=== PATIENT | female | born 1945 | race Two or more races ===

== ENCOUNTER 2025-06-26 12:45 | Emergency (ER) | payer OTHER ==
[~2025-06-26] VITALS: Ht 157.5 cm; Wt 69.9 kg
[2025-06-26] MEDS ORDERED: PLAVIX75 MG PO (13:12)
[2025-06-26] MEDS ORDERED: ATACAND32 MG PO (13:12)
[2025-06-26] MEDS ORDERED: METFORMIN HCL500 M3 PO (13:12)
[2025-06-26] MEDS ORDERED: LIPITOR20 MG PO (13:13)
[2025-06-26] MEDS ORDERED: ZETIA10 MG PO (13:13)
[2025-06-26] MEDS ORDERED: TOPROL XL200 MG PO (13:13)
[2025-06-26] MEDS ORDERED: NITROGLYCERIN 0.4 MG TAB.SUBL SL STA (14:30)
[2025-06-26] MEDS ORDERED: NITROGLYCERIN IN 5 % DEXTROSE 50 MG/250 ML KIT IV STA (14:41)
[2025-06-26] MEDS ORDERED: ASPIRIN 325 MG TABLET PO STA (14:41)
[2025-06-26] MEDS ORDERED: PANTOPRAZOLE SODIUM 40 MG/VIAL VIAL IV PUSH STA (14:42)
[2025-06-26] MEDS ORDERED: SODIUM CHLORIDE 0.45 % 1,000 ML IV STA (14:44)
[2025-06-26 15:13] LABS: BASO % 0.4 % (0.1-1.2); EOS # 0.22 (0.04-0.54); EOS % 2.2 % (0.7-7.0); LYMPH # 3.43 (1.18-3.74); LYMPH % 34.6 % (19.3-53.1); MEAN PLATELET VOLUME 12.10 fl (9.4-12.4); MONO # 0.62 (0.24-0.82); MONO % 6.3 % (4.7-12.5); NEUT # 5.56 (1.56-6.13); NEUT % 56.2 % (34.0-71.1); RED CELL DISTRIBUTION WIDTH 13.5 % (11.6-14.4)
[2025-06-26] MEDS ORDERED: NITROGLYCERIN IN 5 % DEXTROSE 50 MG/250 ML BOTTLE IV ONE (15:14)
[2025-06-26 15:58] LABS: URINE APPEARANCE Clear; URINE BILIRRUBIN Negative (NEGATIVE); URINE BLOOD Negative; URINE COLOR Yellow; URINE GLUCOSE Negative (NEGATIVE); URINE KETONE Negative (NEGATIVE); URINE LEUKOCYTE Small; URINE NITRATE Negative; URINE PROTEIN Negative (NEGATIVE); URINE UROBILINOGEN 0.2 E.U./dl
[2025-06-26 16:01] LABS: ALT/SGPT 42.0 U/L (12-78); AST/SGOT 26.0 U/L (15-37); BILIRUBIN TOTAL 0.38 mg/dL (0.3-1.2); BUN CREA RATIO 22.0 (7.0-25.0); CREATININE SERUM 0.92 mg/dL (0.55-1.02); GFR 59.04; GLOBULINA 3.7 G/DL (2.4-3.5); GLUCOSE FASTING 94.0 mg/dL (65-100); OSMOLALITY SERUM 285.0 MOSM/KG (275-295)
[2025-06-26 16:01] LABS: URINE BACTERIA 414.0 uL (0.0-1933); URINE EPITHELIAL CELLS 32.2 uL (0.0-38.8); URINE RBC 2.7 uL (0.0-20.8); URINE WBC 26.9 uL (0.0-23.2)
[2025-06-26 16:03] LABS: URINE CAST 0.00 uL (0.0-1.40)
== END 2025-06-26 19:52 | disposition home or self-care (01) ==
LOC: ER 12:45
PROVIDERS: General Practice
DX: R07.89 Other chest pain (principal); E11.9 Type 2 diabetes mellitus without complications; Z79.84 Long term (current) use of oral hypoglycemic drugs; I10 Essential (primary) hypertension
CPT/HCPCS: 36415; 71045; 96365; 99283; J3490